=== PATIENT | male | born 1955 | race Caucasian/White ===

== ENCOUNTER 2016-11-22 18:19 | Emergency (ER) | payer OTHER ==
[2016-11-22 18:41] VITALS: BP 128/74; PULSE 97; TEMP 98.1; BMI 30.1
--- NOTE | 2016-11-22 18:51 | PDOC ---
History of Present Illness <Mike Bernabe - Last Filed: 11/22/16 19:00> - General History Source: Patient Exam Limitations: No Limitations - History of Present Illness Initial Comments: 11/22/16 18:52 The patient is a 60 year old male, with significant past medical history of prostate enlargement, who presents today complaining of 2 days of hives all over the body including the trunk, head, and extremities. The hives are very itchy and irritating. He states that he took Lien yesterday and today with mild relief. He notes that he ate some cheese yesterday (which is not unusual) before the hives appeared. The last episode of hives was several years ago. Denies difficulty swallowing, difficulty breathing. Denies fever, chills, nausea, vomiting. Denies any new medications or recent change in diet. Allergies: none reported Medication: Lamisil, flomax (toe nail fungus) Social Hx: No tobacco use. No alcohol use. <Maribel Rowe - Last Filed: 11/22/16 19:10> - General Chief Complaint: Rash Stated Complaint: RASH Time Seen by Provider: 11/22/16 18:35 Past History - Psycho/Social/Smoking Cessation Hx Anxiety: No Suicidal Ideation: No Smoking History: Never smoked Have you smoked in the past 12 months: No Information on smoking cessation initiated: No Hx Alcohol Use: No Drug/Substance Use Hx: No Substance Use Type: None <Mike Bernabe - Last Filed: 11/22/16 19:00> <Maribel Rowe - Last Filed: 11/22/16 19:10> - Past Medical History Allergies/Adverse Reactions: Allergies Allergy/AdvReac Type Severity Reaction Status Date / Time No Known Allergies Allergy Verified 11/22/16 18:19 Home Medications: Ambulatory Orders Diphenhydramine [Benadryl -] 50 mg NR Q6H PRN #24 capsule 11/22/16 Famotidine [Pepcid] 20 mg PO BID PRN #14 tablet 11/22/16 Tamsulosin HCl 0.4 mg PO DAILY 11/22/16 Terbinafine HCl [Lamisil] 250 mg PO DAILY 11/22/16 Review of Systems - Review of Systems Able to Perform ROS?: Yes Comments:: 11/22/16 18:53 CONSTITUTIONAL: Absent: Fever, Chills, Diaphoresis, Generalized Weakness, Malaise, Loss of Appetite HEENT: Absent: Rhinorrhea, Nasal Congestion, Throat Pain, Throat Swelling, Difficulty Swallowing, Mouth Swelling, Ear Pain, Eye Pain, Visual Changes CARDIOVASCULAR: Absent: Chest Pain, Syncope, Palpitations, Irregular Heart Rate, Lightheadedness , Peripheral Edema MUSCULOSKELETAL: Absent: Myalgia, Arthralgia, Joint Swelling, Back pain, Neck Pain SKIN: Present: itchy hives over the whole body. Absent: Pallor <Maribel Rowe - Last Filed: 11/22/16 19:10> *Physical Exam - Vital Signs Last Vital Signs Temp Pulse Resp BP Pulse Ox 98.1 F 97 H 20 128/74 97 11/22/16 18:19 11/22/16 18:19 11/22/16 18:19 11/22/16 18:19 11/22/16 18:19 <Mike Bernabe - Last Filed: 11/22/16 19:00> - Vital Signs Last Vital Signs Temp Pulse Resp BP Pulse Ox 98.1 F 97 H 20 128/74 97 11/22/16 18:19 11/22/16 18:19 11/22/16 18:19 11/22/16 18:19 11/22/16 18:19 - Physical Exam Comments: 11/22/16 19:10 GENERAL: The patient is awake, alert, and fully oriented, in no acute distress. HEAD: Normal with no signs of trauma. EYES: Pupils equal, round and reactive to light, extraocular movements intact, sclera anicteric, conjunctiva clear. OROPHARYNX: no tongue or uvular swelling, normal swallowing, normal voice. CHEST: clear lungs throughout HEART: regular rhythm. No tachycardia. No murmur. EXTREMITIES: Normal range of motion, no edema. Sensation intact. Circulation intact. NEUROLOGICAL:Normal speech, normal gait. PSYCH: Normal mood, normal affect. SKIN: + diffuse raised red welts of varying sizes over the face, neck, chest, arms, and legs. <Maribel Rowe - Last Filed: 11/22/16 19:10> Medical Decision Making - Medical Decision Making 11/22/16 19:00 Patient is a 60-year-old man with benign prostatic hypertrophy and a remote history of urticaria many years ago. Yesterday he developed a rash with itching all over his body. There is no throat swelling or itching. There is no wheezing or shortness of breath. There is no dizziness. He took Lien-D yesterday without relief. There was transient relief, but the rash came back. On examination, the eyes are clear. The throat is without swelling. The lungs are clear without wheezing. The heart is normal. The abdomen is benign. The skin has diffuse urticaria with raised welts of varying sizes on the neck, chest , arms, and legs. Impression: Acute urticaria Plan: Benadryl and Pepcid prescribed <Mike Bernabe - Last Filed: 11/22/16 19:00> *DC/Admit/Observation/Transfer - Discharge Dispostion Admit: No <Mike Bernabe - Last Filed: 11/22/16 19:00> - Attestations Scribe Attestion: 11/22/16 18:54 Documentation prepared by AIDEE David, acting as director medical economics for Mike Bernabe MD. <Maribel Rowe - Last Filed: 11/22/16 19:10> Diagnosis at time of Disposition: Urticaria - Prescriptions Prescriptions: Diphenhydramine [Benadryl -] 50 mg NR Q6H PRN #24 capsule PRN Reason: hives and itching Famotidine [Pepcid] 20 mg PO BID PRN #14 tablet PRN Reason: hives and itching - Patient Instructions Printed Discharge Instructions: DI for Hives Additional Instructions: Today you were evaluated for a rash on her skin. The diagnosis is urticaria, also known as hives. This is treated with antihistamines. Take Benadryl 50 mg every 6 hours. Be aware that this may cause sleepiness. Do not drive if you are feeling sleepy. Take famotidine 20 mg twice a day. Once the rash has resolved, you should continue the medication for another 24 hours or the rash may come back. Follow-up with your primary care physician. Return to the emergency department for any severe or progressive symptoms.
[2016-11-22] MEDS ORDERED: FAMOTIDINE 20 MG TABLET PO ONE (19:11)
[2016-11-22] MEDS ORDERED: FAMOTIDINE 20 MG TABLET ONE (19:16)
== END 2016-11-22 19:27 | disposition home or self-care (01) ==
LOC: FER 18:19
PROC: 3E023GC Introduction of Other Therapeutic Substance into Muscle, Percutaneous Approach (ICD-10-PCS; principal; 2016-11-22)
DX: L50.9 Urticaria, unspecified (principal)
CPT/HCPCS: 96372; 99281-25

== ENCOUNTER 2016-11-23 20:24 | Emergency (ER) | payer OTHER ==
--- NOTE | 2016-11-23 20:30 | PDOC ---
History of Present Illness - General Chief Complaint: Itching Stated Complaint: ITCHY, RED RASH Time Seen by Provider: 11/23/16 20:29 History Source: Patient Exam Limitations: No Limitations - History of Present Illness Initial Comments: 11/23/16 20:39 This is a 60-year-old male who was seen yesterday for urticaria. Patient was discharged home with a prescription for Benadryl every 4 hours. Patient said he has been taking the Benadryl it helps a little bit him and his symptoms come back. Patient denies any chest pain, shortness of breath, sensation his throat is closing, change in his voice or any other complaints. PAST MEDICAL HISTORY: no significant history PAST SURGICAL HISTORY: no significant history FAMILY HISTORY: no pertinant history SOCIAL HISTORY: Pt lives with family and is employed. MEDICATIONS: reviewed ALLERGIES: As per nursing notes Review of Systems General: No fevers or chills, no weakness, no weight loss HEENT: No change in vision. No sore throat,. No ear pain CardioVascular: No chest pain or shortness of breath Respiratory:No cough, or wheezing. Gastrointestinal: no nausea, vomitting, diarrhea or constipation, No rectal bleeding Genitourinary: No dysuria, hematuria, or frequency Musculoskeletal: No joint or muscle pain or swelling Neurologic: No headache, vertigo, dizziness or loss of consciousness Psychiatric: nor depression Skin: No rashes or easy bruising Endocrine: no increased thirst or abnormal weight change Allergic: no skin or latex allergy All other systems reviewed and normal GENERAL: The patient is awake, alert, and fully oriented, in no acute distress. HEAD: Normal with no signs of trauma. EYES: Pupils equal, round and reactive to light, extraocular movements intact, sclera anicteric, conjunctiva clear. EXTREMITIES: Normal range of motion, no edema. NEUROLOGICAL: Normal speech, normal gait. PSYCH: Normal mood, normal affect. SKIN: There is hives of patient's trunk and extremities. Assessment and plan: This is a 60-year-old male with your urticaria who was seen yesterday and now returns because symptoms have persisted. Patient was given Decadron here in the emergency room a prescription for Solu-Medrol Medrol Dosepak and told to continue the Benadryl. Patient will follow-up with his primary care doctor tomorrow if symptoms have not improved or resolved. Past History - Past Medical History Allergies/Adverse Reactions: Allergies Allergy/AdvReac Type Severity Reaction Status Date / Time No Known Allergies Allergy Verified 11/22/16 18:19 Home Medications: Ambulatory Orders Diphenhydramine [Benadryl -] 50 mg NR Q6H PRN #24 capsule 11/22/16 Famotidine [Pepcid] 20 mg PO BID PRN #14 tablet 11/22/16 Tamsulosin HCl 0.4 mg PO DAILY 11/22/16 Terbinafine HCl [Lamisil] 250 mg PO DAILY 11/22/16 Methylprednisolone [Medrol Dose Coy] 4 mg PO ASDIR #21 tablet 11/23/16 - Psycho/Social/Smoking Cessation Hx Anxiety: No Suicidal Ideation: No Smoking History: Never smoked Have you smoked in the past 12 months: No Hx Alcohol Use: No Drug/Substance Use Hx: No Substance Use Type: None *DC/Admit/Observation/Transfer Diagnosis at time of Disposition: Urticaria - Discharge Dispostion Disposition: HOME Condition at time of disposition: Stable Admit: No - Patient Instructions Additional Instructions: Continue to take the Benadryl as prescribed. In addition to that get the prescription for the Medrol Dosepak filled and take the dosepak as directed by the pack. Return to the emergency department immediately with ANY new, persistent or worsening symptoms. Continue any medications as previously prescribed by your physician. You should follow up with your primary doctor as soon as possible regarding today's emergency department visit. . Please make sure your doctor reviews the results of your emergency evaluation. Thank you for coming to the Emergency Department today for your care. It was a pleasure to see you today. Please note that your evaluation is INCOMPLETE until you follow-up with your doctor.
[2016-11-23] MEDS ORDERED: predniSONE 20 MG TABLET (UD) PO ONE (20:31)
[2016-11-23 20:33] VITALS: BP 120/79; PULSE 98; TEMP 97.8; BMI 30.1
[2016-11-23] MEDS ORDERED: DEXAMETHASONE SOD PHOSPHATE 10 MG/1 ML VIAL IM ONE (20:33)
[2016-11-23] MEDS ORDERED: DEXAMETHASONE SOD PHOSPHATE 10 MG/1 ML VIAL ONE (20:35)
== END 2016-11-23 20:52 | disposition home or self-care (01) ==
LOC: FER 20:24
PROC: 3E033GC Introduction of Other Therapeutic Substance into Peripheral Vein, Percutaneous Approach (ICD-10-PCS; principal; 2016-11-23)
DX: L50.9 Urticaria, unspecified (principal)
CPT/HCPCS: 96372; 99283-25

== ENCOUNTER 2023-12-18 14:28 | Emergency (ER) | payer OTHER ==
[2023-12-18 14:48] VITALS: BP 141/81; PULSE 81; RESP 18; TEMP 98.2
== END 2023-12-18 17:54 | disposition home or self-care (01) ==
LOC: FER 14:28
PROC: 0CQ1XZZ Repair Lower Lip, External Approach (ICD-10-PCS; principal; 2023-12-18)
DX: S01.511A Laceration without foreign body of lip, initial encounter (principal); W22.8XXA Striking against or struck by other objects, initial encounter
CPT/HCPCS: 70486-TC; 99284-25